=== PATIENT | female | born 1975 | race Caucasian/White ===

== ENCOUNTER → 2016-12-20 | Outpatient (REF) | payer OTHER ==
[~2016-12-20] MED LIST: ALBU17IN INH; ALBUTEROL INHALER INH; CIPR500T89 PO; IBUP800T23 PO; NORCOTAB PO; VICOBULK PO; VIVI380I IM; XANA0.5T PO
[2016-12-20 11:33] LABS: MEAN CORPUSCULAR HEMOGLOBIN 32.2 pg (27.0-33.0); MEAN CORPUSCULAR HGB CONC 34.2 g/dl (32.0-36.5); RED CELL DISTRIBUTION WIDTH 12.6 % (11.5-14.5); WHITE BLOOD COUNT 7.4 K/mm3 (4.0-10.0)
[2016-12-20 11:45] LABS: ALBUMIN 3.6 GM/DL (3.2-5.2); ALBUMIN/GLOBULIN RATIO 1.13 (1.00-1.93); ALKALINE PHOSPHATASE 136 U/L (45-117); ALT/SGPT 147 U/L (12-78); ANION GAP 7 MEQ/L (8-16); AST/SGOT 72 U/L (15-37); BILIRUBIN,TOTAL 0.4 MG/DL (0.2-1.0); BLOOD UREA NITROGEN 7 MG/DL (7-18); CALCIUM LEVEL 9.1 MG/DL (8.5-10.1); CARBON DIOXIDE LEVEL 28 MEQ/L (21-32); CHLORIDE LEVEL 107 MEQ/L (98-107); CREATININE FOR GFR 0.63 MG/DL (0.55-1.02); GLOMERULAR FILTRATION RATE > 60.0 (>58); GLUCOSE, FASTING 115 MG/DL (70-105); POTASSIUM SERUM 4.4 MEQ/L (3.5-5.1); SODIUM LEVEL 142 MEQ/L (136-145); TOTAL PROTEIN 6.8 GM/DL (6.4-8.2)
== END ==
LOC: M SFHCLERA 08:19
PROVIDERS: ATTEND Physician Assistant
DX: R10.11 Right upper quadrant pain (principal)

== ENCOUNTER → 2016-12-21 | Outpatient (CLI) | payer OTHER ==
--- NOTE | 2016-12-22 06:19 | REP ---
Clinical: Right upper quadrant pain. Technique: Real time caballero scale ultrasound examination using curved array transducer. Findings: Liver is increased in echogenicity with poor through transmission suggesting fatty infiltration without focal hepatic lesion identified. Pancreas is incompletely evaluated due to interposed bowel gas. Gallbladder is normal and without gallstones, wall thickening, or pericholecystic fluid. A positive sonographic Petersen's sign was elicited during examination. No biliary ductal dilatation is appreciated and the common bile duct measures 6.4 mm diameter. The right kidney is normal in reniform shape with suggestion for partial duplication, but no hydronephrosis and measures 9.9 x 5.2 x 4.5 cm. No ascites in the visualized right upper quadrant. Impression: 1. Fatty infiltration to the liver without focal hepatic lesion. 2. Positive Petersen's sign with transducer pressure. Signed by Shadi Hood MD 12/22/2016 06:11 A
== END ==
LOC: M RAD 07:33
PROVIDERS: ATTEND Physician Assistant
DX: R10.11 Right upper quadrant pain (principal); K76.0 Fatty (change of) liver, not elsewhere classified

== ENCOUNTER 2017-03-17 07:45 | Emergency (ER) | payer OTHER ==
[~2017-03-17] VITALS: Ht 165.1 cm; Wt 113.6 kg
[~2017-03-17 07:45] MED LIST changes: +IBUP1TAB7 PO; -IBUP800T23 PO
[2017-03-17] MEDS ORDERED: KETOROLAC 30 MG/ML VIAL (J1885) IV ONE (08:15)
[2017-03-17] MEDS: ONDANSETRON 4MG/2ML VIAL (J2405) IV ONE ×2 (08:15→08:27)
[2017-03-17] MEDS ORDERED: NS 1,000 ML IV ONE (08:15)
[2017-03-17 08:27] LABS: CALCIUM OXALATE CRYSTALS SMALL; RENAL EPITHELIAL CELLS 1 /HPF
[2017-03-17 08:43] LABS: BASO % 0.4 % (0.0-1.0); EOS # 0.2 K/mm3 (0.0-0.50); EOS % 1.8 % (0.0-3.0); LARGE UNSTAINED CELL # 0.1 K/mm3 (0.0-0.4); LARGE UNSTAINED CELL % 0.6 % (0.0-4.0); LYMPH # 1.5 K/mm3 (1.5-4.5); LYMPH % 16.8 % (24.0-44.0); MEAN CORPUSCULAR HEMOGLOBIN 31.4 pg (27.0-33.0); MEAN CORPUSCULAR HGB CONC 33.8 g/dl (32.0-36.5); MEAN CORPUSCULAR VOLUME 92.8 fl (80.0-96.0); MONO # 0.4 K/mm3 (0.0-0.8); MONO % 4.6 % (0.0-5.0); NEUTROPHILS # 6.5 K/mm3 (1.8-7.7); NEUTROPHILS % 75.7 % (36.0-66.0); PLATELET COUNT, AUTOMATED 234 k/mm3 (150-450); RED CELL DISTRIBUTION WIDTH 12.6 % (11.5-14.5); WHITE BLOOD COUNT 8.5 K/mm3 (4.0-10.0)
--- NOTE | 2017-03-17 09:25 | REP ---
CT ABDOMEN AND PELVIS WITHOUT CONTRAST: HISTORY: Flank pain. COMPARISON: 10/13/2012. There is fatty infiltration of the liver. The gallbladder, pancreas, spleen, adrenal glands and kidneys are normal in appearance. There is no nephrolithiasis. There is no mass, adenopathy or free fluid. The visualized lungs are clear. The patient is status post hysterectomy. The urinary bladder is normal in appearance. There is no hydroureter. IMPRESSION: 1. There is no nephrolithiasis or hydroureter. 2. The patient is status post hysterectomy. Signed by Denilson Nielsen MD 03/17/2017 09:34 A
[2017-03-17] MEDS ORDERED: PYRI1TAB5 PO (09:52)
[2017-03-17] MEDS ORDERED: ZOFR4TAB3 PO (09:52)
[2017-03-17] MEDS ORDERED: MACR100C43 PO (09:52)
[2017-03-17 09:53] LABS: ALBUMIN 3.3 GM/DL (3.2-5.2); ALBUMIN/GLOBULIN RATIO 1.03 (1.00-1.93); ALKALINE PHOSPHATASE 113 U/L (45-117); ALT/SGPT 126 U/L (12-78); ANION GAP 7 MEQ/L (8-16); AST/SGOT 69 U/L (15-37); BILIRUBIN,TOTAL 0.4 MG/DL (0.2-1.0); BLOOD UREA NITROGEN 7 MG/DL (7-18); CALCIUM LEVEL 8.1 MG/DL (8.5-10.1); CARBON DIOXIDE LEVEL 28 MEQ/L (21-32); CHLORIDE LEVEL 109 MEQ/L (98-107); CREATININE FOR GFR 0.59 MG/DL (0.55-1.02); GLOMERULAR FILTRATION RATE > 60.0 (>58); GLUCOSE, FASTING 118 MG/DL (70-105); POTASSIUM SERUM 4.4 MEQ/L (3.5-5.1); SODIUM LEVEL 144 MEQ/L (136-145); TOTAL PROTEIN 6.5 GM/DL (6.4-8.2)
[2017-03-17 10:09] VITALS: BP 117/63
[2017-03-17] MEDS ORDERED: PHENAZOPYRIDINE 100 MG TAB PO ONE (10:15)
[2017-03-17] MEDS ORDERED: NITROFURANTOIN (MACROBID) 100 MG CAP PO ONE (10:15)
== END 2017-03-17 10:11 | disposition home or self-care (01) ==
LOC: M ED 07:45
DX: N39.0 Urinary tract infection, site not specified (principal); Z87.442 Personal history of urinary calculi; F17.200 Nicotine dependence, unspecified, uncomplicated; J45.909 Unspecified asthma, uncomplicated; Z87.440 Personal history of urinary (tract) infections; M19.90 Unspecified osteoarthritis, unspecified site; Z79.899 Other long term (current) drug therapy
CPT/HCPCS: 36415; 74176; 80053; 81001; 83605; 85025; 87088; 87186; 96374; 96375; 99283; J1885

== ENCOUNTER 2017-11-22 09:18 | Emergency (ER) | payer OTHER ==
[2017-11-22 09:56] LABS: KETONE, URINE AUTO RFX TRACE mg/dL (NEGATIVE); LEUKOCYTE ESTERASE UR AUTO RFX NEGATIVE (NEGATIVE); MUCUS, URINE RFX SMALL (NEGATIVE); NITRITE, URINE AUTO RFX NEGATIVE (NEGATIVE); RBC, URINE AUTO RFX 0 /HPF (0-3); SPECIFIC GRAVITY UR AUTO RFX 1.025 (1.002-1.035); SQUAM EPITHELIAL CELL UR AURFX 3 /HPF (0-6); WBC, URINE AUTO RFX 1 /HPF (0-3)
[2017-11-22 10:26] LABS: BASO # 0.1 10^3/uL (0.0-0.2); BASO % 0.5 % (0.0-1.0); EOS % 0.2 % (0.0-3.0); HEMATOCRIT 49.3 % (36.0-47.0); HEMOGLOBIN 16.9 g/dl (12.0-15.5); IMMATURE GRANULOCYTE % 0.3 % (0-3.0); LYMPH # 2.1 10^3/uL (1.5-4.5); LYMPH % 22.3 % (24.0-44.0); MEAN CORPUSCULAR HEMOGLOBIN 32.3 pg (27.0-33.0); MEAN CORPUSCULAR HGB CONC 34.3 g/dl (32.0-36.5); MEAN CORPUSCULAR VOLUME 94.3 fl (80.0-96.0); MONO # 0.4 10^3/uL (0.0-0.8); MONO % 4.6 % (0.0-5.0); NEUTROPHILS # 6.8 10^3/uL (1.8-7.7); NEUTROPHILS % 72.1 % (36.0-66.0); PLATELET COUNT, AUTOMATED 287 10^3/uL (150-450); RED BLOOD COUNT 5.23 10^6/uL (4.00-5.40); RED CELL DISTRIBUTION WIDTH 12.5 % (11.5-14.5); WHITE BLOOD COUNT 9.5 10^3/uL (4.0-10.0)
[2017-11-22 10:49] LABS: ALBUMIN 3.8 GM/DL (3.2-5.2); ALKALINE PHOSPHATASE 97 U/L (45-117); ALT/SGPT 50 U/L (12-78); AMYLASE 30 U/L (25-115); ANION GAP 5 MEQ/L (8-16); AST/SGOT 27 U/L (7-37); BILIRUBIN,DIRECT < 0.1 MG/DL (0.0-0.2); BILIRUBIN,TOTAL 0.5 MG/DL (0.2-1.0); BLOOD UREA NITROGEN 9 MG/DL (7-18); CARBON DIOXIDE LEVEL 28 MEQ/L (21-32); CHLORIDE LEVEL 109 MEQ/L (98-107); CREATININE FOR GFR 0.72 MG/DL (0.55-1.30); GLOMERULAR FILTRATION RATE > 60.0 (>58); GLUCOSE, FASTING 115 MG/DL (70-100); LIPASE 73 U/L (73-393); SODIUM LEVEL 142 MEQ/L (136-145); TOTAL PROTEIN 7.6 GM/DL (6.4-8.2)
== END 2017-11-22 11:57 | disposition left against medical advice (07) ==
LOC: M ED 09:18
DX: K83.8 Other specified diseases of biliary tract (principal); Z87.440 Personal history of urinary (tract) infections; F17.200 Nicotine dependence, unspecified, uncomplicated; Z79.899 Other long term (current) drug therapy; Z53.21 Procedure and treatment not carried out due to patient leaving prior to being seen by health care provider
CPT/HCPCS: 76705

== ENCOUNTER 2017-11-22 12:33 | Emergency (ER) | payer OTHER ==
[2017-11-22] MEDS ORDERED: ISOVUE-370 76% 100ML VIAL (Q9967) As Ordered (12:43)
== END 2017-11-22 15:05 | disposition home or self-care (01) ==
LOC: M ED 12:33
DX: K83.8 Other specified diseases of biliary tract (principal); J45.909 Unspecified asthma, uncomplicated; K21.9 Gastro-esophageal reflux disease without esophagitis
CPT/HCPCS: Q9967

== ENCOUNTER 2017-11-23 08:29 | Emergency (ER) | payer OTHER ==
[2017-11-23 09:16] LABS: BASO # 0.1 10^3/uL (0.0-0.2); BASO % 0.7 % (0.0-1.0); EOS % 0.4 % (0.0-3.0); HEMATOCRIT 48.5 % (36.0-47.0); HEMOGLOBIN 16.6 g/dl (12.0-15.5); IMMATURE GRANULOCYTE % 0.3 % (0-3.0); LYMPH # 2.3 10^3/uL (1.5-4.5); LYMPH % 32.2 % (24.0-44.0); MEAN CORPUSCULAR HEMOGLOBIN 32.3 pg (27.0-33.0); MEAN CORPUSCULAR HGB CONC 34.2 g/dl (32.0-36.5); MEAN CORPUSCULAR VOLUME 94.4 fl (80.0-96.0); MONO # 0.5 10^3/uL (0.0-0.8); NEUTROPHILS # 4.1 10^3/uL (1.8-7.7); NEUTROPHILS % 59.4 % (36.0-66.0); PLATELET COUNT, AUTOMATED 289 10^3/uL (150-450); RED BLOOD COUNT 5.14 10^6/uL (4.00-5.40); RED CELL DISTRIBUTION WIDTH 12.4 % (11.5-14.5)
[2017-11-23 09:33] LABS: ALBUMIN 3.9 GM/DL (3.2-5.2); ALBUMIN/GLOBULIN RATIO 1.15 (1.00-1.93); ALKALINE PHOSPHATASE 95 U/L (45-117); ALT/SGPT 47 U/L (12-78); AMYLASE 28 U/L (25-115); ANION GAP 5 MEQ/L (8-16); AST/SGOT 27 U/L (7-37); BILIRUBIN,DIRECT 0.1 MG/DL (0.0-0.2); BILIRUBIN,TOTAL 0.5 MG/DL (0.2-1.0); BLOOD UREA NITROGEN 7 MG/DL (7-18); CALCIUM LEVEL 8.8 MG/DL (8.5-10.1); CARBON DIOXIDE LEVEL 30 MEQ/L (21-32); CHLORIDE LEVEL 105 MEQ/L (98-107); CREATININE FOR GFR 0.73 MG/DL (0.55-1.30); GLOMERULAR FILTRATION RATE > 60.0 (>58); GLUCOSE, FASTING 108 MG/DL (70-100); LIPASE 69 U/L (73-393); POTASSIUM SERUM 3.7 MEQ/L (3.5-5.1); SODIUM LEVEL 140 MEQ/L (136-145); TOTAL PROTEIN 7.3 GM/DL (6.4-8.2)
== END 2017-11-23 09:59 | disposition home or self-care (01) ==
LOC: M ED 08:29
DX: R10.9 Unspecified abdominal pain (principal); J45.909 Unspecified asthma, uncomplicated; K21.9 Gastro-esophageal reflux disease without esophagitis; F41.9 Anxiety disorder, unspecified; F17.210 Nicotine dependence, cigarettes, uncomplicated; Z79.899 Other long term (current) drug therapy
CPT/HCPCS: 82150

== ENCOUNTER 2017-12-18 12:56 | Emergency (ER) | payer OTHER | END 2017-12-18 14:03 | disposition left against medical advice (07) | LOC: M ED 12:56 | DX: Z53.29 Procedure and treatment not carried out because of patient's decision for other reasons (principal) ==

== ENCOUNTER → 2017-12-18 | Outpatient (CLI) | payer OTHER | LOC: M WUC 14:14 | DX: S60.222A Contusion of left hand, initial encounter (principal); X58.XXXA Exposure to other specified factors, initial encounter; Y92.89 Other specified places as the place of occurrence of the external cause; Y93.9 Activity, unspecified; Y99.9 Unspecified external cause status | CPT/HCPCS: 73130 ==

== ENCOUNTER → 2018-02-06 | Outpatient (REF) | payer OTHER ==
[2018-02-06 16:24] LABS: HEMATOCRIT 46.8 % (36.0-47.0); MEAN CORPUSCULAR HEMOGLOBIN 32.5 pg (27.0-33.0); MEAN CORPUSCULAR HGB CONC 34.2 g/dl (32.0-36.5); MEAN CORPUSCULAR VOLUME 95.1 fl (80.0-96.0); PLATELET COUNT, AUTOMATED 262 10^3/uL (150-450); RED BLOOD COUNT 4.92 10^6/uL (4.00-5.40); RED CELL DISTRIBUTION WIDTH 12.7 % (11.5-14.5); WHITE BLOOD COUNT 10.4 10^3/uL (4.0-10.0)
[2018-02-06 16:34] LABS: ESTIMATED AVERAGE GLUCOSE 105 MG/DL (60-110); HEMOGLOBIN A1c 5.3 %
[2018-02-06 16:51] LABS: ALBUMIN 3.5 GM/DL (3.2-5.2); ALBUMIN/GLOBULIN RATIO 1.03 (1.00-1.93); ALKALINE PHOSPHATASE 99 U/L (45-117); ALT/SGPT 38 U/L (12-78); ANION GAP 7 MEQ/L (8-16); AST/SGOT 15 U/L (7-37); BILIRUBIN,TOTAL 0.7 MG/DL (0.2-1.0); BLOOD UREA NITROGEN 8 MG/DL (7-18); CALCIUM LEVEL 8.4 MG/DL (8.5-10.1); CARBON DIOXIDE LEVEL 28 MEQ/L (21-32); CHLORIDE LEVEL 106 MEQ/L (98-107); CREATININE FOR GFR 0.62 MG/DL (0.55-1.30); GLOMERULAR FILTRATION RATE > 60.0 (>58); GLUCOSE, FASTING 89 MG/DL (70-100); POTASSIUM SERUM 4.3 MEQ/L (3.5-5.1); SODIUM LEVEL 141 MEQ/L (136-145); TOTAL PROTEIN 6.9 GM/DL (6.4-8.2)
== END ==
LOC: M SFHCLERA 13:59
DX: F41.8 Other specified anxiety disorders (principal); R53.83 Other fatigue
CPT/HCPCS: 84443

== ENCOUNTER 2018-03-29 11:20 | Outpatient (RCR) | payer MEDICAID | END 2018-04-21 | LOC: M OUTALCOH 04-02 10:00 | DX: F11.20 Opioid dependence, uncomplicated (principal); F12.10 Cannabis abuse, uncomplicated ==

== ENCOUNTER 2018-05-03 08:45 | Outpatient (RCR) | payer MEDICAID | END 2018-05-22 | LOC: M OUTALCOH 05-06 09:32 | DX: F11.20 Opioid dependence, uncomplicated (principal); F12.10 Cannabis abuse, uncomplicated ==

== ENCOUNTER → 2018-08-02 | Outpatient (REF) | payer OTHER, MEDICAID ==
[~2018-08-02] MED LIST changes: +MACR100C43 PO; +OMEP40CA2; +OMEP40CA2 PO; +PYRI1TAB5 PO; +ZOFR4TAB14 PO
[2018-08-02 13:38] LABS: BASO # 0.1 10^3/uL (0.0-0.2); BASO % 0.6 % (0.0-1.0); EOS # 0.1 10^3/uL (0.0-0.50); EOS % 0.8 % (0.0-3.0); HEMATOCRIT 46.3 % (36.0-47.0); HEMOGLOBIN 15.3 g/dl (12.0-15.5); LYMPH % 25.5 % (24.0-44.0); MEAN CORPUSCULAR HEMOGLOBIN 32.3 pg (27.0-33.0); MEAN CORPUSCULAR VOLUME 97.7 fl (80.0-96.0); MONO # 0.4 10^3/uL (0.0-0.8); MONO % 5.4 % (0.0-5.0); NEUTROPHILS # 5.2 10^3/uL (1.8-7.7); NEUTROPHILS % 67.1 % (36.0-66.0); PLATELET COUNT, AUTOMATED 213 10^3/uL (150-450); RED BLOOD COUNT 4.74 10^6/uL (4.00-5.40); WHITE BLOOD COUNT 7.8 10^3/uL (4.0-10.0)
[2018-08-02 13:46] LABS: ALBUMIN 3.2 GM/DL (3.2-5.2); ALT/SGPT 49 U/L (12-78); BILIRUBIN,TOTAL 0.2 MG/DL (0.2-1.0); BLOOD UREA NITROGEN 8 MG/DL (7-18); CALCIUM LEVEL 8.4 MG/DL (8.5-10.1); CARBON DIOXIDE LEVEL 27 MEQ/L (21-32); CHLORIDE LEVEL 109 MEQ/L (98-107); CREATININE FOR GFR 0.59 MG/DL (0.55-1.30); GLOMERULAR FILTRATION RATE > 60.0 (>58); GLUCOSE, FASTING 104 MG/DL (70-100); RHEUMATOID FACTOR QUANT < 10.0 IU/ML (<15.0); SODIUM LEVEL 139 MEQ/L (136-145)
[2018-08-02 13:53] LABS: HEMOGLOBIN A1c 5.2 %
[2018-08-02 14:05] LABS: VITAMIN B12 LEVEL 637 PG/ML
[2018-08-02 14:06] LABS: FOLATE 5.9 NG/ML
[2018-08-02 14:26] LABS: ERYTHROCYTE SEDIMENTATION RATE 10 mm/hr (0-20)
[2018-08-06 12:47] LABS: ALBUMIN 3.54 GM/DL (3.29-5.55); ALPHA-1-GLOBULIN % 4.7 % (2.9-4.9); ALPHA-1-GLOBULINS 0.28 GM/DL (0.17-0.41); ALPHA-2-GLOBULINS 0.74 GM/DL (0.42-0.99); ALPHA-2-GLOBULINS % 12.3 % (7.1-11.8); BETA-1-GLOBULINS 0.43 GM/DL (0.28-0.60); BETA-1-GLOBULINS % 7.2 % (4.7-7.2); BETA-2-GLOBULINS % 5.2 % (3.2-6.5); GAMMA GLOBULIN % 11.6 % (11.1-18.8)
[2018-08-06 12:54] LABS: BETA-2-GLOBULINS 0.31 GM/DL (0.19-0.55)
[2018-08-06 15:02] LABS: VITAMIN E(ALPHA TOCOPHEROL) 8.1 mg/L (7.0-25.1); VITAMIN E(GAMMA TOCOPHEROL) 2.5 mg/L (0.5-5.5)
[2018-08-07 08:35] LABS: ANTINUCLEAR ANTIBODIES DIRECT Negative (Negative); COPPER PLASMA 136 ug/dL (72-166); LEAD BLOOD ADULT 3 ug/dL (0-4); Lyme Disease IgG/IgM Antibodie <0.91 ISR (0.00-0.90); Lyme Disease IgM Ab Quantitati <0.80 index (0.00-0.79); MERCURY LEVEL None Detected ug/L (0.0-14.9); VITAMIN B1 LEVEL WHOLE BLOOD 115.3 nmol/L (66.5-200.0); VITAMIN B6,PYRIDOXAL PHOSPHATE 2.4 ug/L (2.0-32.8)
== END ==
LOC: M LABNEURO 09:54
PROVIDERS: ATTEND Psychiatry & Neurology Neurology
DX: G62.9 Polyneuropathy, unspecified (principal)

== ENCOUNTER 2018-09-09 21:53 | Emergency (ER) | payer MEDICAID, OTHER ==
[~2018-09-09] VITALS: Ht 165.1 cm; Wt 109.1 kg
[2018-09-09] MEDS ORDERED: VIVI380I INJ (23:43)
[2018-09-09] MEDS ORDERED: IBUP80TA PO (23:51)
[2018-09-10] MEDS ORDERED: IBUPROFEN 800 MG TAB PO ONE
[2018-09-10] MEDS ORDERED: ACETAMINOPHEN 325 MG TAB PO ONE
[2018-09-10 00:24] VITALS: BP 139/71
--- NOTE | 2018-09-10 01:12 | REP ---
Clinical: Trauma. Technique: AP, lateral, bilateral oblique and sunrise views left knee . Findings: The osseous structures and joint spaces are intact and normal. There is no evidence for acute fracture or dislocation. No joint effusion is appreciated. Surrounding soft tissues are unremarkable. No subcutaneous emphysema or radiodense foreign body. Impression: Normal age-appropriate left knee examination. No acute fracture or dislocation. Electronically Signed by Shadi Hood MD 09/10/2018 01:04 A
== END 2018-09-10 00:26 | disposition home or self-care (01) ==
LOC: M ED 21:53
DX: M23.92 Unspecified internal derangement of left knee (principal); V00.321A Fall from snow-skis, initial encounter; Y92.838 Other recreation area as the place of occurrence of the external cause; Y93.23 Activity, snow (alpine) (downhill) skiing, snowboarding, sledding, tobogganing and snow tubing; J45.909 Unspecified asthma, uncomplicated; K21.9 Gastro-esophageal reflux disease without esophagitis; Z79.899 Other long term (current) drug therapy

== ENCOUNTER → 2018-10-03 | Outpatient (REF) | payer OTHER ==
[~2018-10-03] MED LIST changes: +IBUP80TA PO; +LYRI150C PO; +PROAAER10 INH; +VIVI380I INJ
[2018-10-03 21:49] LABS: CHLAMYDIA DNA AMPLIFICATION NEGATIVE (NEGATIVE); GC DNA AMPLIFICATION NEGATIVE (NEGATIVE)
== END ==
LOC: M SFHCWAGY 13:42
PROVIDERS: ATTEND Nurse Practitioner Women's Health
DX: Z11.4 Encounter for screening for human immunodeficiency virus [HIV] (principal); Z11.3 Encounter for screening for infections with a predominantly sexual mode of transmission

== ENCOUNTER → 2018-10-31 | Outpatient (REF) | payer OTHER ==
[~2018-10-31] MED LIST changes: +HYDR-3715 PO; -NORCOTAB PO
[2018-10-31 12:33] LABS: BASO # 0.1 10^3/uL (0.0-0.2); BASO % 0.7 % (0.0-1.0); EOS % 0.5 % (0.0-3.0); HEMATOCRIT 51.9 % (36.0-47.0); HEMOGLOBIN 17.3 g/dl (12.0-15.5); LYMPH # 2.5 10^3/uL (1.5-4.5); LYMPH % 28.1 % (24.0-44.0); MEAN CORPUSCULAR HEMOGLOBIN 31.2 pg (27.0-33.0); MEAN CORPUSCULAR HGB CONC 33.3 g/dl (32.0-36.5); MEAN CORPUSCULAR VOLUME 93.7 fl (80.0-96.0); MONO # 0.5 10^3/uL (0.0-0.8); MONO % 5.4 % (0.0-5.0); NEUTROPHILS # 5.7 10^3/uL (1.8-7.7); NEUTROPHILS % 64.8 % (36.0-66.0); PLATELET COUNT, AUTOMATED 328 10^3/uL (150-450); RED BLOOD COUNT 5.54 10^6/uL (4.00-5.40); WHITE BLOOD COUNT 8.7 10^3/uL (4.0-10.0)
[2018-10-31 12:35] LABS: ALBUMIN 3.8 GM/DL (3.2-5.2); ALT/SGPT 51 U/L (12-78); BILIRUBIN,TOTAL 0.5 MG/DL (0.2-1.0); BLOOD UREA NITROGEN 11 MG/DL (7-18); CALCIUM LEVEL 9.2 MG/DL (8.5-10.1); CARBON DIOXIDE LEVEL 29 MEQ/L (21-32); CHLORIDE LEVEL 105 MEQ/L (98-107); CREATININE FOR GFR 0.82 MG/DL (0.55-1.30); GLOMERULAR FILTRATION RATE > 60.0 (>58); GLUCOSE, FASTING 99 MG/DL (70-100); POTASSIUM SERUM 5.1 MEQ/L (3.5-5.1); SODIUM LEVEL 138 MEQ/L (136-145); TOTAL PROTEIN 7.1 GM/DL (6.4-8.2)
== END ==
LOC: M SFHCADAM 10:22
PROVIDERS: ATTEND Family Medicine
DX: Z01.812 Encounter for preprocedural laboratory examination (principal)

== ENCOUNTER 2018-11-05 11:45 | Day surgery (SDC) | payer OTHER ==
[~2018-11-05] VITALS: Ht 165.1 cm; Wt 108.3 kg
[~2018-11-05 11:45] MED LIST changes: +LIDOCAINE 2% INJ 100 MG/5 ML SDV (FOR ANES.) As Ordered ONE; +LR 1,000 ML IV ONE; +MIDAZOLAM INJ 2 MG/2 ML VIAL (J2250) As Ordered ONE; +PROPOFOL 200 MG/20 ML VIAL As Ordered ONE; +ROPIvacaine 0.5% 30 ML INJECTION (J2795 PER 1MG) As Ordered ONE; +ceFAZolin 1GM INJ (J0690 PER 500MG) As Ordered ONE; +fentaNYL 100 MCG/2 ML INJECTION (J3010) As Ordered ONE
[2018-11-05] MEDS ORDERED: LIDOCAINE 1% MDV 20ML VIAL ONE (11:46)
[2018-11-05] MEDS ORDERED: MIDAZOLAM INJ 2 MG/2 ML VIAL (J2250) As Ordered ONE (12:26)
[2018-11-05] MEDS ORDERED: fentaNYL 100 MCG/2 ML INJECTION (J3010) As Ordered ONE ×4 (12:26→14:43)
[2018-11-05] MEDS ORDERED: BUPIVACAINE HCL 0.25% 30 ML VIAL As Ordered ONE (12:26)
[2018-11-05] MEDS ORDERED: ROCURONIUM BROMIDE 50 MG/5 ML VIAL As Ordered ONE (12:58)
[2018-11-05] MEDS ORDERED: dexameTHASONE 4 MG/ML 1ML VIAL (J1100) As Ordered ONE (13:15)
[2018-11-05] MEDS ORDERED: LABETALOL HCL 100 MG/20 ML VIAL As Ordered ONE (13:33)
[2018-11-05] MEDS ORDERED: GLYCOPYRROLATE INJ 0.2 MG/ML 2 ML VIAL As Ordered ONE (13:38)
[2018-11-05] MEDS ORDERED: ONDANSETRON 4MG/2ML VIAL (J2405) As Ordered ONE (13:38)
[2018-11-05] MEDS ORDERED: NEOSTIGMINE 10 MG/10 ML VIAL (J2710) As Ordered ONE (13:39)
[2018-11-05] MEDS ORDERED: NORCO, ANEXSIA 5/325MG TABLET (HYDROcodone/ACETAMINOPHEN) As Ordered ONE (14:43)
[2018-11-05] MEDS: fentaNYL 100 MCG/2 ML INJECTION (J3010) IV PRN ×4 (14:43→14:58)
[2018-11-05] MEDS ORDERED: HYDROMORPHONE HCL 0.5 MG/ 0.5 ML SYRINGE (J1170 PER 1) As Ordered ONE ×2 (14:50→16:15)
[2018-11-05] MEDS: HYDROMORPHONE HCL 0.5 MG/ 0.5 ML SYRINGE (J1170 PER 1) IV PRN ×5 (14:51→16:20)
[2018-11-05] MEDS: NORCO, ANEXSIA 5/325MG TABLET (HYDROcodone/ACETAMINOPHEN) PO PRN ×2 (15:13→15:50)
[2018-11-05] MEDS ORDERED: KETOROLAC 30 MG/ML VIAL (J1885) As Ordered ONE (15:20)
[2018-11-05] MEDS ORDERED: NORCO, ANEXSIA 5/325MG TABLET (HYDROcodone/ACETAMINOPHEN) PO PRN ×2 (15:45)
[2018-11-05] MEDS ORDERED: MORPHINE 4 MG/ML 1ML VIAL/SYRINGE (J2270) IV PRN (15:45)
[2018-11-05] MEDS ORDERED: KETOROLAC 30 MG/ML VIAL (J1885) IV PRN (15:45)
[2018-11-05] MEDS ORDERED: LR 1,000 ML IV SCH (15:45)
[2018-11-05 17:50] VITALS: BP 156/83
--- NOTE | 2018-11-05 19:04 | RO ---
DATE OF PROCEDURE: 11/05/2018 PREOPERATIVE DIAGNOSIS: Left knee anterior cruciate ligament (ACL) tear. POSTOPERATIVE DIAGNOSIS: Left knee lateral meniscus tear. OPERATIVE PROCEDURE: 1. Left knee posterior tibial tendon Allograft ACL reconstruction. 2. Left knee partial lateral meniscectomy. SURGEON: Harriet Maloney MD HOUSING INSTALLER: NORBERTO Lopez ANESTHESIA: General with a left saphenous nerve block. COMPLICATIONS: None. ESTIMATED BLOOD LOSS: None. SPECIMENS: None. Findings: She had a complete acute ACL tear. There was just a small anteromedial bundle of the ACL remaining. The lateral meniscus had a nondisplaced incomplete bucket handle tear in the posterior horn. The medial meniscus had an incomplete small tear that was very stable. Did not require treatment, but the lateral meniscus was felt to be best debrided. DESCRIPTION OF OPERATION: Antibiotics were given intravenously, preoperatively and successful left saphenous nerve block and then a general endotracheal tube anesthetic was established. A tourniquet was placed left upper thigh and not inflated. The left lower extremity was carefully prepped and draped in the usual sterile fashion. Exam under anesthesia prior to prep and drape revealed asymmetric pivot shift on the left with a positive Estiven compared to the right. There was no collateral ligament instability noted. After the left knee was sterilely prepped, draped and elevated, after appropriate time-out the tourniquet was inflated to 250 mmHg. Insufflation portal was established superomedially, scope was introduced anterolaterally and working portal was anteromedial. We introduced the arthroscope and explored the joint. The articular cartilage had some chondromalacia of the trochlea but it was mild as was some chondromalacia of the medial femoral condyle that did not require treatment. The ACL had a large cyclops tear consistent with an essentially complete acute tear. There was just a small anteromedial fiber remaining. This was photographed and then debrided. The lateral meniscus was probed and inspected and there was an incomplete undersurface bucket handle tear. A small portion of it did extend into the superior surface and it was relatively peripheral in the light white junction as I felt it best for debridement. This was a partial lateral meniscectomy that was performed with basket punches. Medial meniscus was carefully probed. There was a small undersurface tear far posteriorly, but very stable to probing and did not require treatment. The posterior tibial Allograft was opened from the freezer and my assistant counsel Mr. Sai Killian worked on the graft by whipstitching either end with FiberWire and then thinning it down enough such that the folded over construct fit through a 10 mm diameter sleeve. As he was working at the back table to do that, I debrided the remnant of the anterior cruciate ligament and then I switched my visualization portal from anterolateral to anteromedial, placed it over the top femoral guide for the FlipCutter technique into the anatomic ACL femoral footprint. The tip of the guide was placed and then over the lateral aspect of the distal femur the drill sleeve advanced through the skin and then a small incision was made through the tensor fascia down to the lateral femoral condylar bone, and then the drill guided advanced. Then, I first placed the guide pin drill first and it came out precisely where we had placed the point of the guide. Then, we switched out the drill to a 100 mm FlipCutter and then I made sure that the drill sleeve was impaled approximately 7 mm into the lateral femoral cortex, and then I passed the FlipCutter and it came out into the joint and then I flipped the FlipCutter and then retroreamed and it came out at 25 mm. I removed the FlipCutter and looked up into the femoral tunnel. Clearly you could see the silver disc from the guide, then I passed the FiberStick and then pulled it out through the anterolateral working portal for future passing of the graft. I then turned my attention to the tibial footprint and debrided the area where the tibial hole would come and then placed the drill guide on the tibial side into that position and then had the drill guide set at almost 60 degrees and made a small indentation of the skin, then made a small longitudinal incision in the skin and then the Bovie down to bone. Advanced the drill sleeve up into the anteromedial tibial cortex, passed the guide and it came up precisely in the mid point where I placed the point of the drill guide and that was at the mid equator of the anterior horn attachment of the lateral meniscus, but on the medial side of the tibial spine. I then used the 10 mm drill to drill over this using a drill soft tissue guide and then we debrided with a shaver and a pituitary rongeur of any bone debris, then the loop of passing suture and previous pass of the femoral tunnel was pulled down through the tibial tunnel and then on the back table, my assistant counsel, Mr. Sai Killian also loaded the tight rope device. We marked the graft at 25 mm and we estimated 40 mm of length on the femoral side of the tunnel total length that was marked. The passing sutures were passed then through the loop of suture and was pulled up to the tibial tunnel out to the lateral femoral cortex. The FlipCutter flipped nicely, it had good proximal fixation, then I used the white passing sutures to bring the graft up into the femoral tunnel. We flexed and extended the knee several times and removed any graft creep. It was felt to be relatively isometric. We then held the knee at about 25 degrees from full extension with a good firm posterior drawer and equal downward pressure on both limbs of the posterior tibial allograft tendon and then a 9 x 23 Bioscrew passed up the tibial tunnel with excellent purchase on the grafts. This eliminated the Estiven on the table and she had full flexion and extension noted. The graft was palpated and found to be nice and taut and the screw came out just at the orifice of the tibial tunnel. Thus we cut the graph short on the tibial side and then oversewed the light passing sutures with a knot tying device, cut those short and then the wounds were closed with #2-0 PDS and nylon sutures. The wounds were then covered with Adaptic dry sterile bulky dressing. The tourniquet was released. She was then awakened from general endotracheal tube anesthesia after having tolerated the procedure well and transferred to the recovery room in stable condition. There were no intraoperative complications. Mr. Killian was critical to the success of this difficult surgery by helping in the ways described above, helped to close the wounds, help to prepare the patient otherwise, amongst many other tasks to allow me to perform the operation smoothly.
== END 2018-11-05 18:00 | disposition home or self-care (01) ==
LOC: M SDC 11:45
PROVIDERS: ATTEND Orthopaedic Surgery
DX: M25.562 Pain in left knee (principal); S83.272A Complex tear of lateral meniscus, current injury, left knee, initial encounter; S83.512A Sprain of anterior cruciate ligament of left knee, initial encounter; W00.0XXA Fall on same level due to ice and snow, initial encounter; Y93.23 Activity, snow (alpine) (downhill) skiing, snowboarding, sledding, tobogganing and snow tubing; Y92.838 Other recreation area as the place of occurrence of the external cause; Y99.9 Unspecified external cause status; K21.9 Gastro-esophageal reflux disease without esophagitis; F41.9 Anxiety disorder, unspecified; J45.909 Unspecified asthma, uncomplicated; Z79.51 Long term (current) use of inhaled steroids; F17.210 Nicotine dependence, cigarettes, uncomplicated; F11.21 Opioid dependence, in remission; Z79.899 Other long term (current) drug therapy
CPT/HCPCS: 29881; 29889; 64447; C1713; C1762; J0690; J1100; J1170; J1885; J2250; J2405; J3010

== ENCOUNTER 2018-12-12 03:14 | Emergency (ER) | payer OTHER ==
[~2018-12-12] VITALS: Ht 165.1 cm; Wt 109.1 kg
[~2018-12-12 03:14] MED LIST changes: -LIDOCAINE 2% INJ 100 MG/5 ML SDV (FOR ANES.) As Ordered ONE; -LR 1,000 ML IV ONE; -MIDAZOLAM INJ 2 MG/2 ML VIAL (J2250) As Ordered ONE; -PROPOFOL 200 MG/20 ML VIAL As Ordered ONE; -ROPIvacaine 0.5% 30 ML INJECTION (J2795 PER 1MG) As Ordered ONE; -ceFAZolin 1GM INJ (J0690 PER 500MG) As Ordered ONE; -fentaNYL 100 MCG/2 ML INJECTION (J3010) As Ordered ONE
[2018-12-12] MEDS ORDERED: NORCO, ANEXSIA 5/325MG TABLET (HYDROcodone/ACETAMINOPHEN) PO ONE (05:30)
[2018-12-12] MEDS ORDERED: IBUP-1022 PO (06:21)
[2018-12-12 06:47] VITALS: BP 158/83
--- NOTE | 2018-12-12 07:59 | REP ---
Clinical: Trauma. Technique: AP, lateral, bilateral oblique views of the left knee. Findings: The patient is noted to be status post ACL repair. Mild degenerative changes include increased sclerosis to the tibial plateau with joint space narrowing. No obvious acute fracture or dislocation is appreciated. Subtle suprapatellar effusion cannot be excluded. Impression: No obvious acute fracture dislocation. Cannot exclude suprapatellar effusion. Electronically Signed by Shadi Hood MD 12/12/2018 07:50 A
== END 2018-12-12 06:53 | disposition home or self-care (01) ==
LOC: M ED 03:14
DX: S13.4XXA Sprain of ligaments of cervical spine, initial encounter (principal); S80.02XA Contusion of left knee, initial encounter; V43.54XA Car driver injured in collision with van in traffic accident, initial encounter; Y92.410 Unspecified street and highway as the place of occurrence of the external cause; J45.909 Unspecified asthma, uncomplicated; K21.9 Gastro-esophageal reflux disease without esophagitis; F41.9 Anxiety disorder, unspecified; F17.210 Nicotine dependence, cigarettes, uncomplicated; Z79.899 Other long term (current) drug therapy; Z98.890 Other specified postprocedural states

== ENCOUNTER → 2019-01-17 | Outpatient (CLI) | payer OTHER ==
[~2019-01-17] MED LIST changes: +IBUP-1022 PO
--- NOTE | 2019-01-17 15:31 | REP ---
BILATERAL SCREENING DIGITAL MAMMOGRAM WITH 3D TOMOSYNTHESIS: There are no palpable abnormalities or other breast complaints. The the patient states she had a clinical breast examination in September 2018. The the patient states she performs self-breast examinations two times per year. The Tyrer-Cuzick Score is: 10.9% . Comparisons are 08/09/2010 and 03/30/2015. There are scattered areas of fibroglandular density. Is a faintly visible, questionable, micro calcific cluster in the right breast superiorly, identified to best advantage on tomosynthesis . This was not definitely present on the prior studies. There is a stable intramammary lymph node laterally in the right breast. There are no other focal suspicious findings. Impression: BIRADS/ACR category 0 mammogram, incomplete, additional imaging evaluation is required. Recommendation: The the patient should return for spot magnification views. This mammogram was interpreted with the aid of a FDA approved computer-aided detection system. A. Negative mammogram reports should not delay biopsy if a dominant or clinically suspicious mass is present. B. Not all breast cancers are identified by mammography or tomosynthesis. C. Adenosis and dense breasts may obscure an underlying neoplasm. Patient letter M0. Electronically Signed by Kirk Palacio MD 01/17/2019 03:22 P
== END ==
LOC: M WHC 14:11
PROVIDERS: ATTEND Nurse Practitioner Women's Health
DX: Z12.31 Encounter for screening mammogram for malignant neoplasm of breast (principal); R92.1 Mammographic calcification found on diagnostic imaging of breast

== ENCOUNTER → 2019-01-20 | Outpatient (REF) | payer OTHER ==
[2019-01-20 14:26] LABS: BASO % 0.6 % (0.0-1.0); EOS # 0.1 10^3/uL (0.0-0.50); EOS % 0.7 % (0.0-3.0); HEMOGLOBIN 16.3 g/dl (12.0-15.5); LYMPH % 28.2 % (24.0-44.0); MEAN CORPUSCULAR HEMOGLOBIN 33.6 pg (27.0-33.0); MEAN CORPUSCULAR HGB CONC 34.7 g/dl (32.0-36.5); MEAN CORPUSCULAR VOLUME 96.9 fl (80.0-96.0); MONO # 0.5 10^3/uL (0.0-0.8); MONO % 6.2 % (0.0-5.0); NEUTROPHILS # 4.6 10^3/uL (1.8-7.7); PLATELET COUNT, AUTOMATED 278 10^3/uL (150-450); RED BLOOD COUNT 4.85 10^6/uL (4.00-5.40); WHITE BLOOD COUNT 7.2 10^3/uL (4.0-10.0)
[2019-01-20 14:55] LABS: ALBUMIN 3.2 GM/DL (3.2-5.2); ALT/SGPT 38 U/L (12-78); BILIRUBIN,TOTAL 0.3 MG/DL (0.2-1.0); BLOOD UREA NITROGEN 6 MG/DL (7-18); CARBON DIOXIDE LEVEL 24 MEQ/L (21-32); CHLORIDE LEVEL 109 MEQ/L (98-107); CHOLESTEROL LEVEL 172 MG/DL (<200); CHOLESTEROL RISK RATIO 3.583 (<5); CREATININE FOR GFR 0.75 MG/DL (0.55-1.30); FREE T4 0.79 NG/DL (0.76-1.46); GLOMERULAR FILTRATION RATE > 60.0 (>58); GLUCOSE, FASTING 107 MG/DL (70-100); HDL CHOLESTEROL 48 MG/DL (>40); LDL CHOLESTEROL 97 MG/DL (<100); NON-HDL-C 124 MG/DL; POTASSIUM SERUM 4.2 MEQ/L (3.5-5.1); SODIUM LEVEL 141 MEQ/L (136-145); TOTAL PROTEIN 6.2 GM/DL (6.4-8.2); TRIGLYCERIDES LEVEL 137 MG/DL (<150)
[2019-01-20 14:56] LABS: TOTAL 25(OH) VITAMIN D 17.9 NG/ML (30.0-100.0)
== END ==
LOC: M SFHCSACK 09:10
PROVIDERS: ATTEND Physician Assistant
DX: Z13.21 Encounter for screening for nutritional disorder (principal); J45.30 Mild persistent asthma, uncomplicated; Z83.438 Family history of other disorder of lipoprotein metabolism and other lipidemia; Z83.49 Family history of other endocrine, nutritional and metabolic diseases

== ENCOUNTER → 2019-01-31 | Outpatient (CLI) | payer OTHER ==
[~2019-01-31] MED LIST changes: -OMEP40CA2; -OMEP40CA2 PO; +OMEP40CA97; +OMEP40CA97 PO
--- NOTE | 2019-01-31 12:04 | REP ---
DIAGNOSTIC MAMMOGRAM RIGHT BREAST: Multiple magnification views of the right breast performed and correlated with the recent mammogram of 01/17/2019. New tiny microcalcifications are seen clustered in the upper right breast in the region of 12 o'clock. These are pleomorphic and cannot definitely be characterized as benign. Recommend stereotactic biopsy. IMPRESSION: BIRADS 4: BI-RADS/ACR category 4 mammogram. Suspicious Abnormality - biopsy should be considered. Clustered pleomorphic microcalcifications 12 o'clock right breast. Recommend sterotactic biopsy. The patient letter being requested is M4. Electronically Signed by Kirk Zaragoza MD 02/03/2019 12:58 P
== END ==
LOC: M RAD 10:40
PROVIDERS: ATTEND Nurse Practitioner Women's Health
DX: R92.1 Mammographic calcification found on diagnostic imaging of breast (principal); Z12.31 Encounter for screening mammogram for malignant neoplasm of breast

== ENCOUNTER → 2019-03-06 | Outpatient (REF) | payer OTHER ==
[~2019-03-06] MED LIST changes: +OMEP40CA2; +OMEP40CA2 PO; -OMEP40CA97; -OMEP40CA97 PO
[2019-03-06 17:59] LABS: AMORPHOUS SEDIMENT SMALL (NEGATIVE); APPEARANCE, URINE TURBID (CLEAR); BACTERIA, URINE AUTO NEGATIVE (NEGATIVE); BILIRUBIN, URINE AUTO NEGATIVE (NEGATIVE); BLOOD, URINE BLOOD 1+ (NEGATIVE); COLOR, URINE YELLOW (YELLOW); GLUCOSE, URINE (UA) AUTO NEGATIVE (NEGATIVE); KETONE, URINE AUTO NEGATIVE (NEGATIVE); LEUKOCYTE ESTERASE, URINE AUTO 2+ (NEGATIVE); MUCUS, URINE SMALL (NEGATIVE); NITRITE, URINE AUTO NEGATIVE (NEGATIVE); PROTEIN, URINE AUTO NEGATIVE (NEGATIVE); RBC, URINE AUTO 7 /HPF (0-3); SPECIFIC GRAVITY URINE AUTO 1.012 (1.002-1.035); SQUAMOUS EPITHELIAL CELL UR AU 3 /HPF (0-6); UROBILINOGEN, URINE AUTO 0.2 mg/dL (0.0-2.0); WBC, URINE AUTO TNTC /HPF (0-3)
== END ==
LOC: M SMT 17:13
PROVIDERS: ATTEND Nurse Practitioner Women's Health
DX: R30.0 Dysuria (principal)

== ENCOUNTER → 2019-05-16 | Outpatient (CLI) | payer OTHER ==
[~2019-05-16] MED LIST changes: -OMEP40CA2; -OMEP40CA2 PO; +OMEP40CA97; +OMEP40CA97 PO
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
== END ==
LOC: M PAIN 11:00
PROVIDERS: ATTEND Anesthesiology
DX: M79.18 Myalgia, other site (principal); M54.2 Cervicalgia; Z86.59 Personal history of other mental and behavioral disorders; J45.909 Unspecified asthma, uncomplicated; K21.9 Gastro-esophageal reflux disease without esophagitis; F17.210 Nicotine dependence, cigarettes, uncomplicated; Z79.899 Other long term (current) drug therapy

== ENCOUNTER → 2019-06-09 | Outpatient (CLI) | payer OTHER ==
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
== END ==
LOC: M PAIN 09:30
PROVIDERS: ATTEND Nurse Practitioner Family
DX: M79.18 Myalgia, other site (principal); G56.91 Unspecified mononeuropathy of right upper limb; Z86.59 Personal history of other mental and behavioral disorders; J45.909 Unspecified asthma, uncomplicated; K21.9 Gastro-esophageal reflux disease without esophagitis; F17.210 Nicotine dependence, cigarettes, uncomplicated; E66.01 Morbid (severe) obesity due to excess calories; Z68.41 Body mass index [BMI] 40.0-44.9, adult; Z79.899 Other long term (current) drug therapy

== ENCOUNTER → 2019-07-08 | Outpatient (CLI) | payer OTHER ==
[~2019-07-08] MED LIST changes: +BUPIVACAINE HCL 0.25% 10 ML VIAL As Ordered ONE; +BUPIVACAINE HCL 0.25% 30 ML VIAL As Ordered ONE; +TRIAMCINOLONE ACETONIDE SUSP 40 MG/ML VIAL (J3301) As Ordered ONE; +diazePAM 5 MG TAB As Ordered ONE; +oxyCODONE 5MG TAB As Ordered ONE
--- NOTE | 2019-07-10 04:08 | ECWPNPC ---
PATIENT NAME: HERRERA RAM : 1975 GENDER: FEMALE VISIT DATE: 07/08/2019 DISCHARGE DATE: 07/08/19 1223 VISIT LOCKED DATE TIME: PHYSICIAN: BRANDON CHENG MD RESOURCE: BRANDON CHENG MD REASON FOR APPOINTMENT 1. NF TPI HISTORY OF PRESENT ILLNESS HISTORY OF PRESENT ILLNESS: PAIN THE PATIENT DESCRIBES THE PAIN... FALL RISK SCREENING: SCREENING :NO FALLS REPORTED IN THE LAST YEAR CURRENT MEDICATIONS TAKING IBUPROFEN 800 MG TABLET 1 TABLET WITH FOOD OR MILK NEEDED ORALLY THREE TIMES A DAY, NOTES: 07/06/19 TAKING OMEPRAZOLE 40 MG CAPSULE DELAYED RELEASE 1 CAPSULE ORALLY ONCE A DAY, NOTES: 07/07/19 TAKING DRISDOL 14820 UNIT CAPSULE 1 CAPSULE ORALLY WEEKLY, NOTES: NONE LATELY TAKING VENTOLIN HFA 108 (90 BASE) MCG/ACT AEROSOL SOLUTION 1-2 PUFFS INHALATION Q 4 HRS PRN, NOTES: 07/07/19 TAKING TIZANIDINE HCL 4 MG TABLET 1 TABLET NEEDED ORALLY THREE TIMES A DAY, NOTES: NONE LATELY TAKING GABAPENTIN 100 MG CAPSULE 1 CAPSULE ORALLY BID, NOTES: NONE LATELY NOT-TAKING ZANAFLEX 4 MG TABLET 1 TABLET NEEDED ORALLY BEFORE BEDTIME NOT-TAKING VIVITROL 380 MG SUSPENSION RECONSTITUTED 4 ML INTRAMUSCULAR MONTHLY NOT-TAKING LYRICA 150 MG CAPSULE 1 CAPSULE ORALLY THREE TIMES A DAY NOT-TAKING ERYTHROMYCIN 5 MG/GM OINTMENT 1 APPLICATION OPHTHALMIC FOUR TIMES A DAY MEDICATION LIST REVIEWED AND RECONCILED WITH THE PATIENT PAST MEDICAL HISTORY ANXIETY ASTHMA TOBACCO ABUSE ECZEMA GERD HIDRADENITIS HISTORY OF OPIOID ABUSE ALLERGIES SEASONAL: ALLERGY SURGICAL HISTORY C SECTION X2 TONSILLECTOMY WISDOM TEETH EXTRACT TOTAL HYSTERECTOMY, PAINFUL MENSES 04/29/15 LEFT KNEE ACL RECONSTRUCTION AND MENISCECTOMY 11/05/18 FAMILY HISTORY FATHER: ALIVE 70 YRS MOTHER: ALIVE 71 YRS DAUGHTER(S): ALIVE PATERNAL GRAND FATHER: PATERNAL GRAND MOTHER: MATERNAL GRAND FATHER: MATERNAL GRAND MOTHER: 2DAUGHTER(S) - HEALTHY. NO FAMILY HX OF ANY UROLOGICAL ISSUES. SOCIAL HISTORY GENERAL: TOBACCO USE ARE YOU A:CURRENT SMOKER ARE YOU INTERESTED IN QUITTING?THINKING ABOUT QUITTING STATES SHE IS WORKING N TRYING TO QUIT. COUNSELED THE PATIENT ON SMOKING CESSATION, EDUCATION [id number]/10/2019 HOW MANY CIGARETTES A DAY DO YOU SMOKE?31 OR MORE HOW SOON AFTER YOU WAKE UP DO YOU SMOKE YOUR FIRST CIGARETTE?WITHIN 5 MIN HOW OFTEN DO YOU SMOKE CIGARETTES?EVERY DAY PATIENT COUNSELED ON THE DANGERS OF TOBACCO USE AND URGED TO QUIT:07/01/2019 HIV / HEP-C SCREENING HIV TEST OFFERED TO PATIENT:YES DATE OFFERED:10/03/2018 TEST ACCEPTED:YES HEP-C TEST OFFERED TO PATIENT:YES DATE OFFERED:02/06/2018 TEST ACCEPTED:NO REASON:PATIENT DECLINED BROCHURE PROVIDED TO PATIENTYES OTHERS AT HOME: CHILDREN. HOUSING: RENTS APARTMENT. EDUCATION LEVEL OF EDUCATION:COLLEGE BACHLORS OF THE [employer] DIET: REGULAR. LANGUAGE KYRGYZ. DOMESTIC VIOLENCE STATUS:SINGLE NEW PATIENT PAIN DIARY PATIENT DESCRIBES PAIN :SHARP, STABBING, SHOOTING FROM 0-10, WHAT LEVEL IS YOUR PAIN TODAY?8 PRECIPITATING FACTORS ACTIVITY, PAIN INTENSIFIES WITH SITTING STILL ALLEVIATING FACTORS MEDICATION, HOT SHOWER, REST IS THERE A CHANCE YOU COULD BE ?NO HAVE YOU BEEN SICK IN THE LAST WEEK (COLD, COUGH, FEVER, FLU, ETC)NO DO YOU TAKE ANY BLOOD THINNERS?NO ANY CHANGE IN BOWEL OR BLADDER CONTROL?YES ARE YOU ALLERGIC TO SHELLFISH OR IV DYE?YES ARE YOU DIABETIC?NO DO YOU HAVE A PACEMAKER OR DEFIBRILLATOR?NO ANY NEW PROBLEMS WITH MEDICINES OR NEW ALLERGIESNO ANY NEW PATTERNS OF PAIN OR NUMBNESS?YES ANY CHANGE IN YOUR MEDICAL CONDITION?NO HAVE YOU FALLEN IN THE LAST 6 MONTHS?YES DO YOU USE ANY TYPE OF TOBACCO (SMOKE, SMOKELESS, CHEW, ETC.)YES ARE YOU ABUSED, NEGLECTED, OR IN AN UNSAFE ENVIRONMENT?NO DO YOU HAVE THOUGHTS OF HURTING YOURSELF OR SOMEONE ELSE?NO DO YOU NEED ANY PRESCRIPTIONS?YES DO YOU HAVE ANY OTHER QUESTIONS OR CONCERNS?NO BMI CARE GOAL FOLLOW-UP ABOVE NORMAL BMI FOLLOW-UPDIETARY MANAGEMENT EDUCATION, GUIDANCE, AND COUNSELING RECREATIONAL DRUG USE DRUG USE?NO EXERCISE: 2 YOUNG CHILDREN. LEARNING BARRIERS / SPECIAL NEEDS CHANGE FROM LAST VISIT?NO LUNG CANCER SCREENING SMOKING STATUS:CURRENT SMOKER IS THE PATIENT BETWEEN THE AGE OF 54 AND 76?NO PAIN CLINIC PFS, CLERGY, PUBLIC HEALTH REFERRALS HAS THE PATIENT BEEN EDUCATED REGARDING HIS/HER PLAN OF CARE?YES HAS THE PATIENT BEEN EDUCATED REGARDING PAIN, THE RISK FOR PAIN, THE IMPORTANCE OF EFFECTIVE PAIN MANAGEMENT, AND THE PAIN ASSESSMENT PROCESS?YES LATEX QUESTIONNAIRE LATEX ALLERGY : HAVE YOU EVER DEVELOPED ANY TYPE OF REACTION AFTER HANDLING LATEX PRODUCTS SUCH RUBBER GLOVES, CONDOMS, DIAPHRAGMS, BALLOONS, SOCKS, OR UNDERWEAR?NO LATEX ALLERGY : HAVE YOU EVER DEVELOPED ANY TYPE OF REACTION DURING OR AFTER DENTAL APPOINTMENT, VAGINAL/RECTAL EXAMINATION, SURGICAL PROCEDURE, OR ANY OTHER EXPOSURE?NO LATEX RISK : HAVE YOU EVER HAD ANY DIFFICULTY BREATHING OR HIVES AFTER EATING OR HANDLING ANY FRUITS, OR VEGETABLES; SUCH KIWI, BANANAS, STONE FRUITS, OR CHESTNUTSNO LATEX RISK : DO YOU HAVE A PREVIOUS PERSONAL HISTORY OF MORE THAN NINE SURGERIES, SPINA BIFIDA, OR REPEATED CATHERIZATIONS? NO LATEX RISK : ARE YOU FREQUENTLY EXPOSED TO LATEX PRODUCTS IN YOUR OCCUPATION?NO DATE ASKED : 07/01/2019 CAFFEINE 2-5/DAY. ADVANCE DIRECTIVE ADVANCE DIRECTIVE DISCUSSED WITH PATIENT:YES PT STATES THAT SHE DOES NOT HAVE HCP AT THIS TIME AND DECLINES ASSISTANCE WITH PAPERWORK. EPISCOPAL NO ALEVISM BELIEFS THAT WOULD IMPACT HEALTH CARE. MARITAL STATUS: SINGLE. 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 SEXUAL HX HAD SEX IN THE LAST 12 MONTHS (VAGINAL, ORAL, OR ANAL)?YES WITHMEN ONLY PREVENTION STRATEGIES DISCUSSED:CONDOMS USE PROTECTION?NO LMP:HYSTER HAVE YOU EVER HAD AN STD?YES OTHER?NO HERPES?NO SYPHILIS?NO GC?NO CHLAMYDIA?YES REVIEWED WITH PATIENT 06/09/19 0903 JSPRE-SCREENING TELEPHONE CALL COMPLETED 07/01/19 0935 ALESHA. HOSPITALIZATION/MAJOR DIAGNOSTIC PROCEDURE INPATIENT FOR OPIOID ADDICTION 2013 INPATIENT FOR OPIOID ADDICTION MAY 2018 UTI/ SEPSIS 2014 SURGERIES REVIEW OF SYSTEMS REVIEWED BY: PROVIDER: . CONSTITUTIONAL: ANY CHANGE IN YOUR MEDICAL CONDITION? NO . CHILLS NO . FEVER NO . INFECTION: DO YOU HAVE NEW INFECTIONS? NO . DO YOU HAVE HISTORY OF MRSA? NO . MUSCULOSKELETAL: ANY NEW PATTERNS OF PAIN OR NUMBNESS? NO . GASTROENTEROLOGY: ANY NEW CHANGE IN BOWEL CONTROL? NO . GENITOURINARY: ANY NEW CHANGE IN BLADDER CONTROL? NO . IS THERE A CHANCE YOU COULD BE ? NO . HEMATOLOGY/LYMPH: DO YOU TAKE ANY BLOOD THINNERS? (FOR EXAMPLE- COUMADIN, PLAVIX, AGGRENOX, PLATEL, PRADAXA, OR XARELTO) NO . WHEN WAS YOUR LAST DOSE? DATE: TIME: . NEUROLOGY: HAVE YOU FALLEN IN THE PAST 12 MONTHS? YES, PRIOR TO LAST VISIT . ANY NEW EXTREMITY NUMBNESS OR WEAKNESS? NO . CARDIOLOGY: DO YOU HAVE A PACEMAKER OR DEFIBRILLATOR? NO . RESPIRATORY: HAVE YOU BEEN SICK IN THE PAST WEEK? NO . FEVER NO . FLU LIKE SYMPTOMS? NO . COUGH NO . INTEGUMENTARY: DO YOU HAVE ANY RASHES OR OPEN SORES? NO . ALLERGIC/IMMUNO: ARE YOU ALLERGIC TO IV DYE? NO . ANY NEW ALLERGIES? NO . PSYCHIATRIC: DO YOU HAVE THOUGHTS OF HURTING YOURSELF OR SOMEONE ELSE? NO . ARE YOU ABUSED, NEGLECTED, OR IN AN UNSAFE ENVIRONMENT? NO . ENDOCRINOLOGY: ARE YOU DIABETIC? NO . OTHER: DO YOU NEED ANY PRESCRIPTIONS? NO . IF YES, PLEASE LIST: ____ . ANY NEW PROBLEMS WITH YOUR MEDICATIONS? NO . WHEN DID YOU LAST EAT? 07/07/19 2330 . WHEN DID YOU LAST DRINK? 07/08/19 0900 . WHAT DID YOU LAST DRINK? SPRITE . NAME OF PERSON DRIVING YOU HOME? LATANYA . DO YOU HAVE ANY OTHER QUESTIONS OR CONCERNS NO . VITAL SIGNS WT 241.8 LBS, HT 65 IN, BMI 40.23 INDEX, BP 133/84 MM HG, HR 89 /MIN, RR 18 /MIN, TEMP 98.6 F, OXYGEN SAT % 98%, NA INITIALS AW 1105, REVIEWED BY: EM. ASSESSMENTS MYALGIA, OTHER SITE - M79.18 (PRIMARY) PROCEDURES PN TRIGGER POINT INJECTION WITH STEROIDS PRE PROCEDURE DIAGNOSIS 1. MYALGIA 2. PAIN AT RIGHT NECK AREA AND RIGHT SHOULDER AREA. POST PROCEDURE DIAGNOSIS 1. MYALGIA 2. PAIN AT RIGHT NECK AREA AND RIGHT SHOULDER AREA. PROCEDURE TRIGGER POINT INJECTION AT RIGHT NECK AREA AND RIGHT SHOULDER AREA. SURGEON DR. BRANDON CHENG PROPERTY APPRAISER NONE ANESTHESIA LOCAL PRE PROCEDURE NOTE THE PATIENT HAS A HISTORY OF CHRONIC PAIN AT THE RIGHT NECK AREA AND RIGHT SHOULDER AREA. I EVALUATED THE PATIENT AND REVIEWED THE CHART. THERE IS EVIDENCE OF BANDS OF TISSUE WITH RESTRICTION OF MOVEMENT AND PRESENCE OF TRIGGER POINT AT THE AFFECTED AREA. I WENT OVER THE RISKS, ALTERNATIVES, AND BENEFITS ASSOCIATED WITH THIS PROCEDURE. THE PATIENT WOULD LIKE TO PROCEED AND GIVES CONSENT TO PERFORM THE PROCEDURE. THE PATIENT DENIES UNEXPLAINABLE WEIGHT LOSS, FEVER, CHILLS, OR NEW CHANGES IN URINARY OR BOWEL CONTROL DESCRIPTION OF PROCEDURE THE PATIENT WAS BROUGHT TO THE PROCEDURE ROOM AND PLACED IN THE SITTING POSITION. THE AREA WAS CLEANED WITH ALCOHOL. THE PROCEDURE WAS DONE USING ASEPTIC STERILE TECHNIQUE. I CHECKED LATERALITY AND THE LEVEL WHERE THE PROCEDURE WAS GOING TO BE PERFORMED WITH THE PATIENT AND THE SUPPORTING STAFF AT THE MOMENT OF THE TIME OUT IN THE PROCEDURE ROOM. USING A 25-GAUGE NEEDLE, TRIGGER POINTS WERE INJECTED AT THE RIGHT NECK AREA AND RIGHT SHOULDER AREA WITH A TOTAL OF 40 ML OF BUPIVACAINE 0.25% AND KENALOG 40 MG. THERE WAS NO EVIDENCE OF BLOOD, PARESTHESIA OR CEREBROSPINAL FLUID DURING THE PROCEDURE. THE PATIENT WAS SENT TO THE RECOVERY ROOM. THE PATIENT WAS MOVING THE EXTREMITIES AND DOING WELL. THERE WAS NO COMPLICATION DURING THE PROCEDURE POST PROCEDURE NOTE I AM LOOKING FOR LONG LASTING PAIN RELIEF WITH THESE INJECTIONS. THE PATIENT WILL BE SEEN IN A FOLLOW UP IN THE NEXT FEW WEEKS. INSTRUCTIONS WERE GIVEN, QUESTIONS WERE ANSWERED, AND THE PATIENT EXPRESSED UNDERSTANDING AND AGREES WITH THE PLAN. I, DELIA LEONARD, DOCUMENTED THE ABOVE INFORMATION ACTING A SCRIBE FOR DR. CHENG. I HAVE REVIEWED THE ABOVE DOCUMENT, WRITTEN BY DELIA SIMPSONIBSandor AND I VERIFY THAT IT IS ACCURATE. PROCEDURE CODES 54894 INJ TRIGGER POINT / MUSC DISPOSITION & COMMUNICATION FOLLOW UP 3 WEEKS ELECTRONICALLY SIGNED BY BRANDON CHENG MD, MD ON 07/09/2019 AT 02:32 PM EST DISCLAIMER : THIS IS A VISIT SUMMARY EXTRACTED FROM THE [employer] CHART. IT IS NOT A COPY OF THE [employer] PROGRESS NOTE. RONEL
== END ==
LOC: M PAIN 11:00
PROVIDERS: ATTEND Anesthesiology
DX: M79.18 Myalgia, other site (principal); Z86.59 Personal history of other mental and behavioral disorders; J45.909 Unspecified asthma, uncomplicated; K21.9 Gastro-esophageal reflux disease without esophagitis; F17.210 Nicotine dependence, cigarettes, uncomplicated; E66.01 Morbid (severe) obesity due to excess calories; Z68.41 Body mass index [BMI] 40.0-44.9, adult; Z79.899 Other long term (current) drug therapy
CPT/HCPCS: 20552; J3301

== ENCOUNTER → 2019-08-28 | Outpatient (CLI) | payer OTHER ==
[~2019-08-28] MED LIST changes: -BUPIVACAINE HCL 0.25% 10 ML VIAL As Ordered ONE; -BUPIVACAINE HCL 0.25% 30 ML VIAL As Ordered ONE; -TRIAMCINOLONE ACETONIDE SUSP 40 MG/ML VIAL (J3301) As Ordered ONE; -diazePAM 5 MG TAB As Ordered ONE; -oxyCODONE 5MG TAB As Ordered ONE
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
== END ==
LOC: M PAIN 13:00
PROVIDERS: ATTEND Nurse Practitioner Family
DX: M79.18 Myalgia, other site (principal); G56.91 Unspecified mononeuropathy of right upper limb; Z86.59 Personal history of other mental and behavioral disorders; J45.909 Unspecified asthma, uncomplicated; K21.9 Gastro-esophageal reflux disease without esophagitis; F17.210 Nicotine dependence, cigarettes, uncomplicated; E66.01 Morbid (severe) obesity due to excess calories; Z68.41 Body mass index [BMI] 40.0-44.9, adult; Z79.899 Other long term (current) drug therapy

== ENCOUNTER → 2020-03-23 | Outpatient (REF) | payer MEDICAID ==
[2020-03-23 17:00] LABS: BLOOD UREA NITROGEN 11 MG/DL (7-18); CREATININE FOR GFR 0.98 MG/DL (0.55-1.30); GLUCOSE, FASTING 119 MG/DL (70-100)
[2020-03-23 17:01] LABS: ALBUMIN 3.6 GM/DL (3.2-5.2); ALT/SGPT 111 U/L (12-78); BILIRUBIN,TOTAL 0.3 MG/DL (0.2-1.0); CARBON DIOXIDE LEVEL 29 MEQ/L (21-32); CHLORIDE LEVEL 106 MEQ/L (98-107); CHOLESTEROL LEVEL 237 MG/DL (<200); CHOLESTEROL RISK RATIO 4.309 (<5); GLOMERULAR FILTRATION RATE > 60.0 (>58); HDL CHOLESTEROL 55 MG/DL (>40); LDL CHOLESTEROL 153 MG/DL (<100); NON-HDL-C 182 MG/DL; POTASSIUM SERUM 4.6 MEQ/L (3.5-5.1); SODIUM LEVEL 140 MEQ/L (136-145); TOTAL PROTEIN 7.3 GM/DL (6.4-8.2); TRIGLYCERIDES LEVEL 147 MG/DL (<150)
[2020-03-23 17:10] LABS: BASO # 0.1 10^3/uL (0.0-0.2); BASO % 0.6 % (0.0-1.0); EOS # 0.1 10^3/uL (0.0-0.5); EOS % 1.3 % (0.0-3.0); HEMATOCRIT 47.7 % (36.0-47.0); HEMOGLOBIN 15.7 g/dl (12.0-15.5); LYMPH # 1.9 10^3/uL (1.5-5.0); LYMPH % 21.8 % (24.0-44.0); MEAN CORPUSCULAR HEMOGLOBIN 31.7 pg (27.0-33.0); MEAN CORPUSCULAR HGB CONC 32.9 g/dl (32.0-36.5); MEAN CORPUSCULAR VOLUME 96.2 fl (80.0-96.0); MONO # 0.5 10^3/uL (0.0-0.8); MONO % 6.1 % (0.0-5.0); NEUTROPHILS # 5.9 10^3/uL (1.5-8.5); NEUTROPHILS % 69.6 % (36.0-66.0); PLATELET COUNT, AUTOMATED 259 10^3/uL (150-450); RED BLOOD COUNT 4.96 10^6/uL (4.00-5.40); WHITE BLOOD COUNT 8.5 10^3/uL (4.0-10.0)
[2020-03-23 17:11] LABS: TOTAL 25(OH) VITAMIN D 16.4 NG/ML (30.0-100.0)
[2020-03-23 17:54] LABS: HEMOGLOBIN A1c 5.7 %
== END ==
LOC: M SFHCLERA 11:12
PROVIDERS: ATTEND Nurse Practitioner Family
DX: R73.01 Impaired fasting glucose (principal); E55.9 Vitamin D deficiency, unspecified; Z13.220 Encounter for screening for lipoid disorders

== ENCOUNTER 2021-03-28 17:14 | Emergency (ER) | payer MEDICAID, OTHER ==
[~2021-03-28] VITALS: Ht 165.1 cm; Wt 121.8 kg
[~2021-03-28 17:14] MED LIST changes: +OMEP40CA4; +OMEP40CA4 PO; -OMEP40CA97; -OMEP40CA97 PO
[2021-03-28] MEDS ORDERED: ALBU8.5H (17:32)
[2021-03-28] MEDS ORDERED: OMEP-221 (17:32)
[2021-03-28] MEDS ORDERED: ACET-683 PO (17:32)
[2021-03-28] MEDS ORDERED: IBUP200C25 PO (17:32)
[2021-03-28] MEDS ORDERED: AUGMENTIN 875 MG TAB PO ONE (17:55)
[2021-03-28] MEDS ORDERED: ACETAMINOPHEN 500 MG TAB PO ONE (17:55)
[2021-03-28] MEDS ORDERED: AUGM875T28 PO (17:56)
[2021-03-28 18:22] VITALS: BP 160/89
== END 2021-03-28 18:47 | disposition home or self-care (01) ==
LOC: M ED 17:14
DX: K04.7 Periapical abscess without sinus (principal); K08.89 Other specified disorders of teeth and supporting structures; F17.200 Nicotine dependence, unspecified, uncomplicated; J45.909 Unspecified asthma, uncomplicated; K21.9 Gastro-esophageal reflux disease without esophagitis

== ENCOUNTER → 2022-09-14 | Outpatient (REF) | payer MEDICAID, OTHER ==
[~2022-09-14] MED LIST changes: +ACET-683 PO; +ALBU8.5H; +AUGM875T28 PO; +IBUP200C25 PO; +OMEP40CA5
== END ==
LOC: M SFHCWAGY 10:05
PROVIDERS: ATTEND Nurse Practitioner Family
DX: Z12.4 Encounter for screening for malignant neoplasm of cervix (principal)

== ENCOUNTER → 2022-09-14 | Outpatient (CLI) | payer OTHER | LOC: M WHC 15:24 | PROVIDERS: ATTEND Nurse Practitioner Family | DX: Z12.31 Encounter for screening mammogram for malignant neoplasm of breast (principal) ==

== ENCOUNTER → 2022-09-22 | Outpatient (CLI) | payer OTHER ==
[2022-09-22 17:16] LABS: BASO # 0.1 10^3/uL (0.0-0.2); BASO % 0.6 % (0.0-1.0); EOS # 0.1 10^3/uL (0.0-0.5); HEMATOCRIT 47.1 % (36.0-47.0); HEMOGLOBIN 15.3 g/dl (12.0-15.5); LYMPH # 2.7 10^3/uL (1.5-5.0); LYMPH % 28.5 % (24.0-44.0); MEAN CORPUSCULAR HEMOGLOBIN 30.8 pg (27.0-33.0); MEAN CORPUSCULAR HGB CONC 32.5 g/dl (32.0-36.5); MEAN CORPUSCULAR VOLUME 94.8 fl (80.0-96.0); MONO # 0.7 10^3/uL (0.0-0.8); MONO % 6.8 % (2.0-8.0); NEUTROPHILS % 62.6 % (36.0-66.0); PLATELET COUNT, AUTOMATED 307 10^3/uL (150-450); RED BLOOD COUNT 4.97 10^6/uL (4.00-5.40); WHITE BLOOD COUNT 9.6 10^3/uL (4.0-10.0)
[2022-09-22 17:44] LABS: ALBUMIN 3.4 G/DL (3.2-5.2); ALKALINE PHOSPHATASE 129 U/L (46-116); ALT/SGPT 177 U/L (7.0-40); AST/SGOT 106 U/L (<34); BILIRUBIN,TOTAL 0.4 MG/DL (0.3-1.2); BLOOD UREA NITROGEN 11 MG/DL (9-23); CALCIUM LEVEL 9.3 MG/DL (8.5-10.1); CARBON DIOXIDE LEVEL 33 MMOL/L (20-31); CHLORIDE LEVEL 101 MMOL/L (98-107); CHOLESTEROL LEVEL 194 MG/DL (<200); CHOLESTEROL RISK RATIO 4.21 (<5); CREATININE FOR GFR 0.62 MG/DL (0.55-1.30); GLOMERULAR FILTRATION RATE > 60.0 (>58); GLUCOSE, FASTING 164 MG/DL (60-100); NON-HDL-C 148 MG/DL; POTASSIUM SERUM 4.7 MMOL/L (3.5-5.1); SODIUM LEVEL 139 MMOL/L (136-145); TOTAL PROTEIN 6.8 G/DL (5.7-8.2); TRIGLYCERIDES LEVEL 210 MG/DL (<150)
[2022-09-22 17:45] LABS: THYROID STIMULATING HORMONE 2.068 uIU/ML (0.55-4.78)
[2022-09-22 17:47] LABS: HEMOGLOBIN A1c 6.7 % (4.0-6.0)
== END ==
LOC: M PLALAB 15:37
PROVIDERS: ATTEND Family Medicine
DX: Z68.42 Body mass index [BMI] 45.0-49.9, adult (principal)

== ENCOUNTER 2022-10-13 04:41 | Emergency (ER) | payer MEDICAID, OTHER ==
[~2022-10-13] VITALS: Ht 165.1 cm; Wt 137.8 kg
[2022-10-13 05:39] LABS: BASO % 0.4 % (0.0-1.0); EOS # 0.1 10^3/uL (0.0-0.5); EOS % 1.2 % (0.0-3.0); HEMATOCRIT 44.4 % (36.0-47.0); HEMOGLOBIN 14.8 g/dl (12.0-15.5); LYMPH # 2.1 10^3/uL (1.5-5.0); LYMPH % 21.3 % (24.0-44.0); MEAN CORPUSCULAR HEMOGLOBIN 31.2 pg (27.0-33.0); MEAN CORPUSCULAR HGB CONC 33.3 g/dl (32.0-36.5); MEAN CORPUSCULAR VOLUME 93.5 fl (80.0-96.0); MONO # 0.7 10^3/uL (0.0-0.8); MONO % 7.2 % (2.0-8.0); NEUTROPHILS # 6.7 10^3/uL (1.5-8.5); NEUTROPHILS % 69.5 % (36.0-66.0); PLATELET COUNT, AUTOMATED 259 10^3/uL (150-450); RED BLOOD COUNT 4.75 10^6/uL (4.00-5.40); WHITE BLOOD COUNT 9.7 10^3/uL (4.0-10.0)
[2022-10-13 06:03] LABS: LIPASE 25 U/L (12-53)
[2022-10-13 06:05] LABS: CPK CREATINE PHOSPHOKINASE 179 U/L (34-145)
[2022-10-13 06:09] LABS: ALBUMIN 3.4 G/DL (3.2-5.2); ALKALINE PHOSPHATASE 109 U/L (46-116); ALT/SGPT 156 U/L (7.0-40); AST/SGOT 80 U/L (<34); BILIRUBIN,DIRECT 0.2 MG/DL (<0.4); BILIRUBIN,TOTAL 0.6 MG/DL (0.3-1.2); BLOOD UREA NITROGEN 12 MG/DL (9-23); CALCIUM LEVEL 8.9 MG/DL (8.5-10.1); CARBON DIOXIDE LEVEL 29 MMOL/L (20-31); CHLORIDE LEVEL 104 MMOL/L (98-107); CK-MB VALUE MASS 2.7 NG/ML (<3.6); CREATININE FOR GFR 0.69 MG/DL (0.55-1.30); GLOMERULAR FILTRATION RATE > 60.0 (>58); GLUCOSE, FASTING 144 MG/DL (60-100); HCG, SERUM QUALITATIVE NEGATIVE (NEGATIVE); POTASSIUM SERUM 4.2 MMOL/L (3.5-5.1); SODIUM LEVEL 138 MMOL/L (136-145); THYROID STIMULATING HORMONE 5.076 uIU/ML (0.55-4.78); TOTAL PROTEIN 6.5 G/DL (5.7-8.2)
[2022-10-13] MEDS ORDERED: cefTRIAXone SOD 1 GM in D5W MINI-BAG PLUS 50 ML IV ONE (07:40)
[2022-10-13] MEDS ORDERED: FUROSEMIDE 100MG/10ML VIAL IV ONE (07:40)
[2022-10-13 09:37] LABS: FREE T4 0.92 NG/DL (0.89-1.76)
[2022-10-13 10:33] VITALS: BP 131/75
[2022-10-13] MEDS ORDERED: POTA-151 PO (10:44)
[2022-10-13] MEDS ORDERED: HYDR25OIN TOP (10:44)
[2022-10-13] MEDS ORDERED: CEFD300C41 PO (10:44)
[2022-10-13] MEDS ORDERED: LASI20TA3 PO (10:44)
== END 2022-10-13 11:03 | disposition home or self-care (01) ==
LOC: M ED 04:41
DX: R73.9 Hyperglycemia, unspecified (principal); R21 Rash and other nonspecific skin eruption; R60.9 Edema, unspecified; N39.0 Urinary tract infection, site not specified; M54.50 Low back pain, unspecified; J45.909 Unspecified asthma, uncomplicated; F17.200 Nicotine dependence, unspecified, uncomplicated; Z79.52 Long term (current) use of systemic steroids; Z79.2 Long term (current) use of antibiotics; Z79.899 Other long term (current) drug therapy
CPT/HCPCS: 36415; 71046; 80048; 80076; 81001; 82550; 82553; 83690; 83880; 84439; 84443; 84703; 85025; 87088; 87186; 93005; 93970; 96374; 96375; 99284; J0696; J1940

== ENCOUNTER → 2023-01-04 | Outpatient (CLI) | payer MEDICAID, OTHER ==
[~2023-01-04] MED LIST changes: +CEFD300C41 PO; +HYDR25OIN TOP; +LASI20TA3 PO; +POTA-151 PO
== END ==
LOC: M CARPUL 09:49
PROVIDERS: ATTEND Family Medicine
DX: M79.89 Other specified soft tissue disorders (principal)

== ENCOUNTER → 2023-01-11 | Outpatient (CLI) | payer OTHER | LOC: M RAD 07:17 | PROVIDERS: ATTEND Family Medicine | DX: R74.8 Abnormal levels of other serum enzymes (principal) ==

== ENCOUNTER 2023-03-16 06:31 | Emergency (ER) | payer OTHER ==
[~2023-03-16] VITALS: Ht 165.1 cm; Wt 132.9 kg
[2023-03-16 08:08] VITALS: BP 139/94; TEMP 98.2; O2SAT 97
== END 2023-03-16 08:09 | disposition home or self-care (01) ==
LOC: M ED 06:31
DX: S93.602A Unspecified sprain of left foot, initial encounter (principal); W10.8XXA Fall (on) (from) other stairs and steps, initial encounter; K21.9 Gastro-esophageal reflux disease without esophagitis; F17.200 Nicotine dependence, unspecified, uncomplicated; Y92.009 Unspecified place in unspecified non-institutional (private) residence as the place of occurrence of the external cause; Z79.52 Long term (current) use of systemic steroids; Z79.899 Other long term (current) drug therapy

== ENCOUNTER → 2023-04-11 | Outpatient (CLI) | payer OTHER | LOC: M WHC 13:25 | PROVIDERS: ATTEND Nurse Practitioner Family | DX: N63.22 Unspecified lump in the left breast, upper inner quadrant (principal) ==